=== PATIENT | male | born 1975 | race Hispanic/Latino ===

== ENCOUNTER 2023-06-28 05:46 | Emergency (ER) | payer BC ==
[~2023-06-28] VITALS: Ht 172.7 cm; Wt 171.9 kg
[2023-06-28 05:49] VITALS: BP 156/101; PULSE 72; RESP 20
== END 2023-06-28 07:40 | disposition left against medical advice (07) ==
LOC: EDH 05:46
DX: M79.671 Pain in right foot (principal); Z53.21 Procedure and treatment not carried out due to patient leaving prior to being seen by health care provider